=== PATIENT | male | born 1970 | race American Indian/Alaskan Native ===

== ENCOUNTER 2018-11-26 19:22 | Emergency (ER) | payer SELFPAY ==
[2018-11-26 19:45] VITALS: BP 120/73
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
== END 2018-11-27 00:27 | disposition home or self-care (01) ==
LOC: ED 19:22
DX: S00.83XA Contusion of other part of head, initial encounter (principal); G44.319 Acute post-traumatic headache, not intractable; J44.9 Chronic obstructive pulmonary disease, unspecified; F17.200 Nicotine dependence, unspecified, uncomplicated; Y04.0XXA Assault by unarmed brawl or fight, initial encounter; Y93.89 Activity, other specified; Y92.098 Other place in other non-institutional residence as the place of occurrence of the external cause; Y99.8 Other external cause status
CPT/HCPCS: 70450; 70486; 99283